=== PATIENT | female | born 1955 | race Caucasian/White ===

== ENCOUNTER → 2017-08-25 | Outpatient (REF) | payer OTHER ==
[2017-08-25 18:14] LABS: ANION GAP 4 MEQ/L (8-16); BLOOD UREA NITROGEN 22 MG/DL (7-18); CALCIUM LEVEL 9.3 MG/DL (8.8-10.2); CARBON DIOXIDE LEVEL 34 MEQ/L (21-32); CHLORIDE LEVEL 101 MEQ/L (98-107); CREATININE FOR GFR 0.95 MG/DL (0.55-1.02); GLOMERULAR FILTRATION RATE > 60.0 (>45); GLUCOSE, FASTING 105 MG/DL (80-110); POTASSIUM SERUM 4.1 MEQ/L (3.5-5.1); SODIUM LEVEL 139 MEQ/L (136-145)
== END ==
LOC: M SFHCLERA 13:43
PROVIDERS: ATTEND Family Medicine
DX: Z13.1 Encounter for screening for diabetes mellitus (principal); I10 Essential (primary) hypertension

== ENCOUNTER → 2019-02-11 | Outpatient (REF) | payer OTHER ==
[2019-02-11 18:33] LABS: BLOOD UREA NITROGEN 18 MG/DL (7-18); CALCIUM LEVEL 9.5 MG/DL (8.8-10.2); CARBON DIOXIDE LEVEL 34 MEQ/L (21-32); CHLORIDE LEVEL 102 MEQ/L (98-107); CHOLESTEROL LEVEL 148 MG/DL (<200); CREATININE FOR GFR 0.94 MG/DL (0.55-1.30); GLOMERULAR FILTRATION RATE > 60.0 (>45); GLUCOSE, FASTING 91 MG/DL (70-100); HDL CHOLESTEROL 50 MG/DL (>40); LDL CHOLESTEROL 80 MG/DL (<100); NON-HDL-C 98 MG/DL; POTASSIUM SERUM 4.5 MEQ/L (3.5-5.1); SODIUM LEVEL 141 MEQ/L (136-145); TRIGLYCERIDES LEVEL 89 MG/DL (<150)
== END ==
LOC: M SFHCLERA 11:13
PROVIDERS: ATTEND Family Medicine
DX: I10 Essential (primary) hypertension (principal); E78.5 Hyperlipidemia, unspecified; R73.03 Prediabetes

== ENCOUNTER → 2019-03-08 | Outpatient (CLI) | payer OTHER ==
--- NOTE | 2019-03-08 11:35 | REP ---
PA and lateral chest: There are no comparisons. The lung alvarez are clear. The cardiac size is normal. The chandni, mediastinum, and skeletal structures are unremarkable. Impression: Negative PA and lateral chest. Electronically Signed by Zion Adames MD 03/08/2019 11:27 A
== END ==
LOC: M LRY 11:05
PROVIDERS: ATTEND Physician Assistant
DX: R06.2 Wheezing (principal)

== ENCOUNTER 2021-12-03 18:42 | Inpatient (IN) | payer MEDICARE ==
[~2021-12-03] VITALS: Ht 154.9 cm; Wt 42.4 kg
[2021-12-03] MEDS ORDERED: HOME MED LIST COMPLETE! XX SCH (21:00)
[2021-12-03] MEDS ORDERED: D31000TA2 PO (21:00)
[2021-12-03] MEDS ORDERED: LISI20TA33 PO (21:00)
[2021-12-03] MEDS ORDERED: ASPI1TAB8 PO (21:00)
[2021-12-03] MEDS ORDERED: CHLO125TA PO (21:00)
[2021-12-03] MEDS ORDERED: ATOR80TA59 PO (21:00)
[2021-12-03 21:31] LABS: RSV AMPLIFICATION NEGATIVE (NEGATIVE)
[2021-12-03 21:48] VITALS: BP 105/53
[2021-12-03 22:03] VITALS: BP 101/57
[2021-12-03] MEDS ORDERED: MAALOX 30 ML SUSP *UDC PO PRN (22:05)
[2021-12-03] MEDS ORDERED: ACETAMINOPHEN TAB 650MG DOSE (2X325MG) PO PRN (22:05)
[2021-12-03] MEDS ORDERED: MOM 30ML SUSPENSION UDC PO PRN (22:05)
[2021-12-03] MEDS: NS 1,000 ML IV SCH (22:10)
[2021-12-03] MEDS ORDERED: NS 500 ML IV ONE (22:10)
[2021-12-03 22:54] VITALS: BP 105/52
[2021-12-03 23:59] VITALS: BP 114/59
[2021-12-04] VITALS (8 sets, daily range): BP systolic 91–92; BP diastolic 51–52
[2021-12-04 01:31] LABS: BASO % 0.2 % (0.0-1.0); EOS # 0.2 10^3/uL (0.0-0.5); EOS % 1.2 % (0.0-3.0); HEMATOCRIT 27.2 % (36.0-47.0); LYMPH # 0.9 10^3/uL (1.5-5.0); LYMPH % 4.6 % (24.0-44.0); MEAN CORPUSCULAR HEMOGLOBIN 26.2 pg (27.0-33.0); MEAN CORPUSCULAR HGB CONC 31.6 g/dl (32.0-36.5); MEAN CORPUSCULAR VOLUME 82.9 fl (80.0-96.0); MONO % 5.2 % (2.0-8.0); NEUTROPHILS # 16.6 10^3/uL (1.5-8.5); NEUTROPHILS % 88.3 % (36.0-66.0); RED BLOOD COUNT 3.28 10^6/uL (4.00-5.40); WHITE BLOOD COUNT 18.8 10^3/uL (4.0-10.0)
[2021-12-04 01:40] LABS: HEMOGLOBIN 8.6 g/dl (12.0-15.5); PLATELET COUNT, AUTOMATED 458 10^3/uL (150-450)
[2021-12-04 01:42] LABS: ALBUMIN 2.6 GM/DL (3.2-5.2); BILIRUBIN,TOTAL 1.3 MG/DL (0.2-1.0); CALCIUM LEVEL 8.8 MG/DL (8.8-10.2); CREATININE FOR GFR 1.65 MG/DL (0.55-1.30); GLOMERULAR FILTRATION RATE 32.9 (>45); MAGNESIUM LEVEL 2.4 MG/DL (1.8-2.4); POTASSIUM SERUM 4.5 MEQ/L (3.5-5.1); TOTAL PROTEIN 5.9 GM/DL (6.4-8.2)
[2021-12-04] MEDS: PIPERACILLIN/TAZOBACTAM SOD 4.5 GM in D5W MINI-BAG PLUS 50 ML IV SCH ×3 (02:05→15:31)
[2021-12-04] MEDS: NS 1,000 ML IV SCH ×3 (06:44→21:54)
[2021-12-04] MEDS: ATORVASTATIN 20 MG TAB PO SCH (09:18)
[2021-12-04 11:39] LABS: CALCIUM LEVEL 8.9 MG/DL (8.8-10.2); CREATININE FOR GFR 1.54 MG/DL (0.55-1.30); GLOMERULAR FILTRATION RATE 35.7 (>45); POTASSIUM SERUM 4.6 MEQ/L (3.5-5.1)
[2021-12-04 11:40] LABS: BASO % 0.2 % (0.0-1.0); EOS # 0.2 10^3/uL (0.0-0.5); EOS % 1.1 % (0.0-3.0); HEMATOCRIT 31.4 % (36.0-47.0); HEMOGLOBIN 10.1 g/dl (12.0-15.5); LYMPH # 0.8 10^3/uL (1.5-5.0); LYMPH % 4.3 % (24.0-44.0); MAGNESIUM LEVEL 2.3 MG/DL (1.8-2.4); MEAN CORPUSCULAR HEMOGLOBIN 25.6 pg (27.0-33.0); MEAN CORPUSCULAR HGB CONC 32.2 g/dl (32.0-36.5); MEAN CORPUSCULAR VOLUME 79.5 fl (80.0-96.0); MONO # 0.9 10^3/uL (0.0-0.8); MONO % 4.8 % (2.0-8.0); NEUTROPHILS % 88.8 % (36.0-66.0); PHOSPHORUS LEVEL 3.6 MG/DL (2.5-4.9); PLATELET COUNT, AUTOMATED 434 10^3/uL (150-450); RED BLOOD COUNT 3.95 10^6/uL (4.00-5.40)
[2021-12-04 12:44] LABS: APPEARANCE, URINE CLOUDY (CLEAR); BACTERIA, URINE AUTO 1+ (NEGATIVE); BILIRUBIN, URINE AUTO NEGATIVE (NEGATIVE); BLOOD, URINE BLOOD 2+ (NEGATIVE); COLOR, URINE YELLOW (YELLOW); GLUCOSE, URINE (UA) AUTO NEGATIVE (NEGATIVE); KETONE, URINE AUTO NEGATIVE (NEGATIVE); LEUKOCYTE ESTERASE, URINE AUTO NEGATIVE (NEGATIVE); MUCUS, URINE SMALL (NEGATIVE); NITRITE, URINE AUTO NEGATIVE (NEGATIVE); PROTEIN, URINE AUTO 1+ mg/dL (NEGATIVE); RBC, URINE AUTO 1 /HPF (0-3); SPECIFIC GRAVITY URINE AUTO 1.014 (1.002-1.035); SQUAMOUS EPITHELIAL CELL UR AU 0 /HPF (0-6); UROBILINOGEN, URINE AUTO 0.2 mg/dL (0.0-2.0); WBC, URINE AUTO 5 /HPF (0-3)
[2021-12-04 20:57] LABS: PERCENT SATURATION 10.7 % (13.2-45.0)
[2021-12-04 22:31] LABS: FOLATE 8.6 NG/ML (>5.4)
[2021-12-05] MEDS: NS 1,000 ML IV SCH ×2 (01:40→14:10)
[2021-12-05 06:00] VITALS: BP 92/52
[2021-12-05 06:54] LABS: BASO # 0.1 10^3/uL (0.0-0.2); BASO % 0.3 % (0.0-1.0); EOS # 0.3 10^3/uL (0.0-0.5); EOS % 1.8 % (0.0-3.0); HEMATOCRIT 28.8 % (36.0-47.0); HEMOGLOBIN 9.1 g/dl (12.0-15.5); LYMPH # 0.8 10^3/uL (1.5-5.0); LYMPH % 4.7 % (24.0-44.0); MEAN CORPUSCULAR HEMOGLOBIN 25.5 pg (27.0-33.0); MEAN CORPUSCULAR HGB CONC 31.6 g/dl (32.0-36.5); MEAN CORPUSCULAR VOLUME 80.7 fl (80.0-96.0); MONO % 5.7 % (2.0-8.0); NEUTROPHILS # 15.1 10^3/uL (1.5-8.5); NEUTROPHILS % 86.8 % (36.0-66.0); PLATELET COUNT, AUTOMATED 389 10^3/uL (150-450); RED BLOOD COUNT 3.57 10^6/uL (4.00-5.40); WHITE BLOOD COUNT 17.4 10^3/uL (4.0-10.0)
[2021-12-05 07:22] LABS: ALBUMIN 1.9 GM/DL (3.2-5.2); ALT/SGPT 42 U/L (12-78); BILIRUBIN,TOTAL 1.3 MG/DL (0.2-1.0); BLOOD UREA NITROGEN 40 MG/DL (7-18); CALCIUM LEVEL 8.1 MG/DL (8.8-10.2); CARBON DIOXIDE LEVEL 22 MEQ/L (21-32); CHLORIDE LEVEL 112 MEQ/L (98-107); CREATININE FOR GFR 1.41 MG/DL (0.55-1.30); GLOMERULAR FILTRATION RATE 39.5 (>45); GLUCOSE, FASTING 61 MG/DL (70-100); MAGNESIUM LEVEL 2.3 MG/DL (1.8-2.4); PHOSPHORUS LEVEL 3.2 MG/DL (2.5-4.9); POTASSIUM SERUM 4.1 MEQ/L (3.5-5.1); SODIUM LEVEL 143 MEQ/L (136-145); TOTAL PROTEIN 4.6 GM/DL (6.4-8.2)
[2021-12-05] MEDS: ATORVASTATIN 20 MG TAB PO SCH (08:46)
[2021-12-05] MEDS: GASTROGRAFIN SOLUTION 30ML PO SCH ×2 (08:46→09:36)
[2021-12-05 08:59] LABS: HEPATITIS B SURFACE ANTIGEN NEGATIVE (NEGATIVE)
[2021-12-05 09:26] LABS: HEPATITIS C VIRUS ABY INDEX < 0.0 INDEX (<0.8)
[2021-12-05 09:27] LABS: HEPATITIS B CORE ANTIBODY IGM NEGATIVE (NEGATIVE)
[2021-12-05 14:00] VITALS: BP 113/62
[2021-12-05] MEDS ORDERED: LIDOCAINE 1% MDV 20ML VIAL As Ordered ONE (14:49)
[2021-12-05 15:25] VITALS: BP 111/63
[2021-12-05 15:50] VITALS: BP 96/56
[2021-12-05 17:05] VITALS: BP 99/56
[2021-12-05] MEDS: D5W/0.45% SODIUM CHLORIDE 1,000 ML IV SCH (18:12)
[2021-12-05 21:20] VITALS: BP 101/54
[2021-12-05] MEDS ORDERED: MOM 30ML SUSPENSION UDC PO ONE (22:00)
[2021-12-06] MEDS: D5W/0.45% SODIUM CHLORIDE 1,000 ML IV SCH (02:10)
[2021-12-06 06:00] VITALS: BP 123/67
[2021-12-06 06:11] LABS: BASO # 0.1 10^3/uL (0.0-0.2); BASO % 0.3 % (0.0-1.0); EOS # 0.3 10^3/uL (0.0-0.5); EOS % 1.4 % (0.0-3.0); HEMATOCRIT 29.9 % (36.0-47.0); HEMOGLOBIN 9.2 g/dl (12.0-15.5); LYMPH # 0.7 10^3/uL (1.5-5.0); MEAN CORPUSCULAR HEMOGLOBIN 25.3 pg (27.0-33.0); MEAN CORPUSCULAR HGB CONC 30.8 g/dl (32.0-36.5); MEAN CORPUSCULAR VOLUME 82.1 fl (80.0-96.0); MONO # 0.9 10^3/uL (0.0-0.8); MONO % 5.1 % (2.0-8.0); NEUTROPHILS # 16.2 10^3/uL (1.5-8.5); NEUTROPHILS % 88.5 % (36.0-66.0); PLATELET COUNT, AUTOMATED 399 10^3/uL (150-450); RED BLOOD COUNT 3.64 10^6/uL (4.00-5.40); WHITE BLOOD COUNT 18.3 10^3/uL (4.0-10.0)
[2021-12-06 06:37] LABS: ALBUMIN 1.8 GM/DL (3.2-5.2); BILIRUBIN,TOTAL 0.7 MG/DL (0.2-1.0); CALCIUM LEVEL 7.8 MG/DL (8.8-10.2); CREATININE FOR GFR 1.54 MG/DL (0.55-1.30); GLOMERULAR FILTRATION RATE 35.7 (>45); MAGNESIUM LEVEL 2.1 MG/DL (1.8-2.4); PHOSPHORUS LEVEL 2.6 MG/DL (2.5-4.9); POTASSIUM SERUM 3.6 MEQ/L (3.5-5.1); TOTAL PROTEIN 4.6 GM/DL (6.4-8.2)
[2021-12-06] MEDS ORDERED: MOM 30ML SUSPENSION UDC PO SCH (07:00)
[2021-12-06] MEDS ORDERED: MOM 30ML SUSPENSION UDC PO ONE (08:10)
[2021-12-06] MEDS: ATORVASTATIN 20 MG TAB PO SCH (08:35)
[2021-12-06] MEDS: KCL 10MEQ/100ML SWI (KRUN) 10 MEQ in IV 1 EA IV SCH ×4 (08:35→13:56)
[2021-12-06] MEDS ORDERED: FLEET ENEMA PR ONE (12:00)
[2021-12-06] MEDS ORDERED: propofoL 200 MG/20 ML VIAL As Ordered ONE (13:01)
[2021-12-06] MEDS ORDERED: PHENYLephrine 500MCG 5ML (100MCG/ML) SYRINGE As Ordered ONE (13:07)
[2021-12-06 14:00] VITALS: BP 120/69
[2021-12-06] MEDS ORDERED: IRON SUCROSE 200 MG in NS 100 ML IV ONE (17:00)
[2021-12-06] MEDS ORDERED: LevoFLOXacin 750 MG TABLET PO SCH (18:00)
[2021-12-06 22:00] VITALS: BP 103/62
[2021-12-07 02:00] VITALS: BP 114/74
[2021-12-07 05:20] VITALS: BP 111/68
[2021-12-07 06:27] LABS: BASO # 0.1 10^3/uL (0.0-0.2); BASO % 0.3 % (0.0-1.0); EOS # 0.2 10^3/uL (0.0-0.5); EOS % 1.4 % (0.0-3.0); HEMATOCRIT 29.9 % (36.0-47.0); HEMOGLOBIN 9.3 g/dl (12.0-15.5); LYMPH # 0.7 10^3/uL (1.5-5.0); LYMPH % 4.2 % (24.0-44.0); MEAN CORPUSCULAR HEMOGLOBIN 25.7 pg (27.0-33.0); MEAN CORPUSCULAR HGB CONC 31.1 g/dl (32.0-36.5); MEAN CORPUSCULAR VOLUME 82.6 fl (80.0-96.0); MONO % 6.1 % (2.0-8.0); NEUTROPHILS # 14.8 10^3/uL (1.5-8.5); NEUTROPHILS % 87.2 % (36.0-66.0); PLATELET COUNT, AUTOMATED 400 10^3/uL (150-450); RED BLOOD COUNT 3.62 10^6/uL (4.00-5.40)
[2021-12-07 06:50] LABS: CALCIUM LEVEL 8.1 MG/DL (8.8-10.2); CREATININE FOR GFR 1.74 MG/DL (0.55-1.30); MAGNESIUM LEVEL 2.3 MG/DL (1.8-2.4); PHOSPHORUS LEVEL 2.4 MG/DL (2.5-4.9); POTASSIUM SERUM 4.6 MEQ/L (3.5-5.1)
[2021-12-07] MEDS ORDERED: K-PHOS ORIGINAL (POT.ACID PHOSPHATE) 500MG TAB PO ONE (08:00)
[2021-12-07] MEDS: ATORVASTATIN 20 MG TAB PO SCH (08:30)
[2021-12-07] MEDS ORDERED: SPIRONOLACTONE 12.5MG PER 1/2 TABLET PO SCH (09:00)
[2021-12-07 10:00] VITALS: BP 113/67
[2021-12-07] MEDS ORDERED: ALDA25TA2 PO (11:28)
[2021-12-07] MEDS ORDERED: LEVO750T13 PO (11:28)
[2021-12-07 14:00] VITALS: BP 126/75
== END 2021-12-07 15:11 | disposition home or self-care (01) | DRG 375 ==
LOC: M ED 18:42 → M ED INP 22:04 → ENRESERV 23:09 → UNDODISIN 12-04 00:22 → M MSPAV 12-04 00:36
PROVIDERS: ADMIT Family Medicine; ATTEND Internal Medicine
PROC: 30233N1 Transfusion of Nonautologous Red Blood Cells into Peripheral Vein, Percutaneous Approach (ICD-10-PCS; 2021-12-03)
PROC: 0FB13ZX Excision of Right Lobe Liver, Percutaneous Approach, Diagnostic (ICD-10-PCS; 2021-12-06)
PROC: 0DBK8ZX Excision of Ascending Colon, Via Natural or Artificial Opening Endoscopic, Diagnostic (ICD-10-PCS; principal; 2021-12-06 13:25)
DX: C18.2 Malignant neoplasm of ascending colon (principal); N17.9 Acute kidney failure, unspecified; C78.7 Secondary malignant neoplasm of liver and intrahepatic bile duct; Z68.1 Body mass index [BMI] 19.9 or less, adult; D50.0 Iron deficiency anemia secondary to blood loss (chronic); R63.4 Abnormal weight loss; I10 Essential (primary) hypertension; R91.8 Other nonspecific abnormal finding of lung field; E78.5 Hyperlipidemia, unspecified; Z79.899 Other long term (current) drug therapy; Z79.82 Long term (current) use of aspirin; E87.6 Hypokalemia

== ENCOUNTER → 2021-12-03 | Outpatient (CLI) | payer MEDICARE ==
[~2021-12-03] MED LIST: ASPI1TAB8 PO; ATOR80TA59 PO; CHLO125TA PO; D31000TA2 PO; LISI20TA33 PO
[2021-12-03 15:34] LABS: BASO # 0.1 10^3/uL (0.0-0.2); BASO % 0.2 % (0.0-1.0); EOS # 0.1 10^3/uL (0.0-0.5); EOS % 0.6 % (0.0-3.0); LYMPH # 0.8 10^3/uL (1.5-5.0); LYMPH % 3.6 % (24.0-44.0); MEAN CORPUSCULAR HEMOGLOBIN 24.5 pg (27.0-33.0); MEAN CORPUSCULAR HGB CONC 30.1 g/dl (32.0-36.5); MEAN CORPUSCULAR VOLUME 81.5 fl (80.0-96.0); MONO # 1.4 10^3/uL (0.0-0.8); MONO % 6.6 % (2.0-8.0); NEUTROPHILS # 18.4 10^3/uL (1.5-8.5); NEUTROPHILS % 88.1 % (36.0-66.0); PLATELET COUNT, AUTOMATED 569 10^3/uL (150-450); RED BLOOD COUNT 2.65 10^6/uL (4.00-5.40); WHITE BLOOD COUNT 20.8 10^3/uL (4.0-10.0)
[2021-12-03 15:36] LABS: AMORPHOUS SEDIMENT SMALL (NEGATIVE); APPEARANCE, URINE CLOUDY (CLEAR); BACTERIA, URINE AUTO NEGATIVE (NEGATIVE); BILIRUBIN, URINE AUTO NEGATIVE (NEGATIVE); BLOOD, URINE BLOOD 1+ (NEGATIVE); COLOR, URINE YELLOW (YELLOW); GLUCOSE, URINE (UA) AUTO NEGATIVE (NEGATIVE); GRANULAR CAST, URINE AUTO 3 /LPF; KETONE, URINE AUTO NEGATIVE (NEGATIVE); LEUKOCYTE ESTERASE, URINE AUTO 2+ (NEGATIVE); MUCUS, URINE SMALL (NEGATIVE); NITRITE, URINE AUTO NEGATIVE (NEGATIVE); PROTEIN, URINE AUTO 1+ mg/dL (NEGATIVE); RBC, URINE AUTO 1 /HPF (0-3); SPECIFIC GRAVITY URINE AUTO 1.015 (1.002-1.035); SQUAMOUS EPITHELIAL CELL UR AU 2 /HPF (0-6); WBC, URINE AUTO 6 /HPF (0-3)
[2021-12-03 15:46] LABS: HEMOGLOBIN 6.5 g/dl (12.0-15.5)
[2021-12-03 15:47] LABS: HEMATOCRIT 21.6 % (36.0-47.0)
[2021-12-03 15:59] LABS: HEMOGLOBIN A1c 5.6 %
[2021-12-03 16:07] LABS: ALBUMIN 2.6 GM/DL (3.2-5.2); BILIRUBIN,TOTAL 0.4 MG/DL (0.2-1.0); C REACTIVE PROTEIN QUANTITATIV 13.7 MG/DL (0.00-0.30); CALCIUM LEVEL 9.3 MG/DL (8.8-10.2); CREATININE FOR GFR 1.8 MG/DL (0.55-1.30); GLOMERULAR FILTRATION RATE 29.8 (>45); POTASSIUM SERUM 4.6 MEQ/L (3.5-5.1); THYROID STIMULATING HORMONE 1.5 uIU/ML (0.358-3.740)
[2021-12-03 16:13] LABS: ERYTHROCYTE SEDIMENTATION RATE 108 mm/hr (0-30)
== END ==
LOC: M RAD 13:30
PROVIDERS: ATTEND Family Medicine
DX: R91.8 Other nonspecific abnormal finding of lung field (principal); I73.9 Peripheral vascular disease, unspecified; Z79.899 Other long term (current) drug therapy

== ENCOUNTER 2021-12-11 20:37 | Observation (INO) | payer MEDICARE ==
[~2021-12-11] VITALS: Ht 154.9 cm; Wt 45.5 kg
[~2021-12-11 20:37] MED LIST changes: +ALDA25TA2 PO; -D31000TA2 PO; +LEVO750T13 PO; +VITA100093 PO
[2021-12-11 22:23] LABS: BASO # 0.1 10^3/uL (0.0-0.2); BASO % 0.2 % (0.0-1.0); EOS # 0.2 10^3/uL (0.0-0.5); EOS % 0.9 % (0.0-3.0); HEMATOCRIT 31.7 % (36.0-47.0); HEMOGLOBIN 9.9 g/dl (12.0-15.5); LYMPH # 0.8 10^3/uL (1.5-5.0); LYMPH % 3.9 % (24.0-44.0); MEAN CORPUSCULAR HEMOGLOBIN 26.2 pg (27.0-33.0); MEAN CORPUSCULAR HGB CONC 31.2 g/dl (32.0-36.5); MEAN CORPUSCULAR VOLUME 83.9 fl (80.0-96.0); MONO # 0.9 10^3/uL (0.0-0.8); MONO % 4.2 % (2.0-8.0); NEUTROPHILS # 18.5 10^3/uL (1.5-8.5); NEUTROPHILS % 90.1 % (36.0-66.0); PLATELET COUNT, AUTOMATED 385 10^3/uL (150-450); RED BLOOD COUNT 3.78 10^6/uL (4.00-5.40); WHITE BLOOD COUNT 20.5 10^3/uL (4.0-10.0)
[2021-12-11 22:59] LABS: CALCIUM LEVEL 9.3 MG/DL (8.8-10.2); CREATININE FOR GFR 1.63 MG/DL (0.55-1.30); GLOMERULAR FILTRATION RATE 33.4 (>45); POTASSIUM SERUM 4.7 MEQ/L (3.5-5.1)
[2021-12-12] MEDS ORDERED: ACETAMINOPHEN TAB 650MG DOSE (2X325MG) PO PRN (05:15)
[2021-12-12] MEDS ORDERED: LEVO750T13 PO (06:50)
[2021-12-12] MEDS ORDERED: SPIR-10 PO (06:50)
[2021-12-12] MEDS ORDERED: HOME MED LIST COMPLETE! XX SCH (06:50)
[2021-12-12] MEDS: HEPARIN SOD (PORCINE) 5000UNITS/ML 1ML VIAL/SYRINGE SC SCH ×2 (07:51→14:00)
[2021-12-12 09:03] VITALS: BP 109/64
[2021-12-12 09:09] LABS: BASO # 0.1 10^3/uL (0.0-0.2); BASO % 0.2 % (0.0-1.0); EOS # 0.1 10^3/uL (0.0-0.5); EOS % 0.4 % (0.0-3.0); HEMATOCRIT 32.3 % (36.0-47.0); HEMOGLOBIN 9.8 g/dl (12.0-15.5); LYMPH # 0.7 10^3/uL (1.5-5.0); LYMPH % 3.4 % (24.0-44.0); MEAN CORPUSCULAR HEMOGLOBIN 25.7 pg (27.0-33.0); MEAN CORPUSCULAR HGB CONC 30.3 g/dl (32.0-36.5); MEAN CORPUSCULAR VOLUME 84.6 fl (80.0-96.0); MONO % 4.6 % (2.0-8.0); NEUTROPHILS # 19.8 10^3/uL (1.5-8.5); NEUTROPHILS % 90.2 % (36.0-66.0); PLATELET COUNT, AUTOMATED 381 10^3/uL (150-450); RED BLOOD COUNT 3.82 10^6/uL (4.00-5.40)
[2021-12-12 09:44] LABS: ALBUMIN 2.4 GM/DL (3.2-5.2); BILIRUBIN,TOTAL 0.9 MG/DL (0.2-1.0); CALCIUM LEVEL 9.6 MG/DL (8.8-10.2); CREATININE FOR GFR 1.76 MG/DL (0.55-1.30); GLOMERULAR FILTRATION RATE 30.6 (>45); POTASSIUM SERUM 4.2 MEQ/L (3.5-5.1); TOTAL PROTEIN 6.4 GM/DL (6.4-8.2)
[2021-12-12] MEDS ORDERED: FUROSEMIDE 20MG/2ML VIAL (J1940) IV ONE (12:30)
[2021-12-12] MEDS ORDERED: FURO20TA2 PO (12:34)
[2021-12-12 18:41] LABS: C REACTIVE PROTEIN QUANTITATIV 12.3 MG/DL (0.00-0.30)
[2021-12-18] MEDS ORDERED: VITA100093 PO (04:14)
== END 2021-12-12 15:46 | disposition home or self-care (01) ==
LOC: M ED 20:37 → M ED INP 20:38
PROVIDERS: ADMIT Internal Medicine; ATTEND Internal Medicine
DX: R60.0 Localized edema (principal); N17.9 Acute kidney failure, unspecified; I10 Essential (primary) hypertension; E78.00 Pure hypercholesterolemia, unspecified; D64.9 Anemia, unspecified; C18.9 Malignant neoplasm of colon, unspecified; Z79.899 Other long term (current) drug therapy
CPT/HCPCS: 36415; 71045; 74176; 80048; 80053; 80503; 83735; 83880; 84145; 85025; 85652; 86140; 87040; 87798; 93005; 93306; 93970; 96374; 99284; G0378; J1644; J1940

== ENCOUNTER 2021-12-17 13:10 | Inpatient (IN) | payer MEDICARE ==
[~2021-12-17] VITALS: Ht 154.9 cm; Wt 48.5 kg
[~2021-12-17 13:10] MED LIST changes: +D31000TA2 PO; +FURO20TA2 PO; +SPIR-10 PO; -VITA100093 PO
[2021-12-17 18:56] LABS: BASO # 0.1 10^3/uL (0.0-0.2); BASO % 0.2 % (0.0-1.0); HEMATOCRIT 36.2 % (36.0-47.0); HEMOGLOBIN 11.1 g/dl (12.0-15.5); LYMPH # 0.8 10^3/uL (1.5-5.0); LYMPH % 2.6 % (24.0-44.0); MEAN CORPUSCULAR HEMOGLOBIN 25.1 pg (27.0-33.0); MEAN CORPUSCULAR HGB CONC 30.7 g/dl (32.0-36.5); MEAN CORPUSCULAR VOLUME 81.9 fl (80.0-96.0); MONO % 3.5 % (2.0-8.0); NEUTROPHILS # 26.8 10^3/uL (1.5-8.5); NEUTROPHILS % 92.7 % (36.0-66.0); PLATELET COUNT, AUTOMATED 362 10^3/uL (150-450); RED BLOOD COUNT 4.42 10^6/uL (4.00-5.40)
[2021-12-17 19:34] LABS: ERYTHROCYTE SEDIMENTATION RATE 69 mm/hr (0-30)
[2021-12-17 21:14] LABS: ALBUMIN 2.3 GM/DL (3.2-5.2); BILIRUBIN,DIRECT 1.1 MG/DL (0.0-0.2); BILIRUBIN,TOTAL 1.5 MG/DL (0.2-1.0); C REACTIVE PROTEIN QUANTITATIV 20.1 MG/DL (0.00-0.30); CALCIUM LEVEL 8.7 MG/DL (8.8-10.2); CREATININE FOR GFR 3.29 MG/DL (0.55-1.30); FREE T4 1.34 NG/DL (0.76-1.46); GLOMERULAR FILTRATION RATE 14.9 (>45); POTASSIUM SERUM 5.2 MEQ/L (3.5-5.1); THYROID STIMULATING HORMONE 5.37 uIU/ML (0.358-3.740); TOTAL PROTEIN 6.2 GM/DL (6.4-8.2)
[2021-12-17] MEDS ORDERED: MORPHINE 2 MG/ML 1ML VIAL (J2270) IV ONE (21:45)
[2021-12-18] MEDS ORDERED: DEXTROSE 50% 50 ML SYRINGE As Ordered ONE (01:35)
[2021-12-18] MEDS ORDERED: DEXTROSE 50% 50 ML SYRINGE IV STA (01:59)
[2021-12-18] MEDS ORDERED: NS 1,000 ML IV SCH ×2 (04:00)
[2021-12-18] MEDS ORDERED: SPIR-10 PO (04:14)
[2021-12-18] MEDS ORDERED: FURO20TA2 PO (04:14)
[2021-12-18] MEDS ORDERED: D31000TA2 PO (04:14)
[2021-12-18] MEDS ORDERED: ATOR80TA59 PO (04:14)
[2021-12-18 04:15] VITALS: BP 115/67
[2021-12-18] MEDS ORDERED: HOME MED LIST COMPLETE! XX SCH (04:15)
[2021-12-18] MEDS: HEPARIN SOD (PORCINE) 5000UNITS/ML 1ML VIAL/SYRINGE SC SCH ×3 (05:17→22:25)
[2021-12-18 06:32] LABS: CALCIUM LEVEL 8.2 MG/DL (8.8-10.2); CREATININE FOR GFR 3.5 MG/DL (0.55-1.30); GLOMERULAR FILTRATION RATE 13.8 (>45); POTASSIUM SERUM 4.7 MEQ/L (3.5-5.1)
[2021-12-18] MEDS ORDERED: HEPARIN SOD (PORCINE) 5000UNITS/ML 1ML VIAL/SYRINGE SC SCH (09:00)
[2021-12-18] MEDS ORDERED: ATORVASTATIN 20 MG TAB PO SCH (09:00)
[2021-12-18] MEDS: VITAMIN D 1,000 INTERNATIONAL UNITS TABLET PO SCH (09:10)
[2021-12-18] MEDS ORDERED: ONDANSETRON 4MG/2ML VIAL IV PRN (09:50)
[2021-12-18] MEDS ORDERED: FUROSEMIDE 40MG/4ML VIAL (J1940) IV SCH (10:00)
[2021-12-18 14:00] VITALS: BP 112/67
[2021-12-18] MEDS: D5W/0.45% SODIUM CHLORIDE 1,000 ML IV SCH (14:18)
[2021-12-18 16:40] VITALS: BP 111/66
[2021-12-18 19:35] LABS: APPEARANCE, URINE CLOUDY (CLEAR); BACTERIA, URINE AUTO 1+ (NEGATIVE); BILIRUBIN, URINE AUTO NEGATIVE (NEGATIVE); BLOOD, URINE BLOOD 3+ (NEGATIVE); COLOR, URINE AMBER (YELLOW); GLUCOSE, URINE (UA) AUTO 1+ mg/dL (NEGATIVE); KETONE, URINE AUTO NEGATIVE (NEGATIVE); LEUKOCYTE ESTERASE, URINE AUTO TRACE (NEGATIVE); NITRITE, URINE AUTO NEGATIVE (NEGATIVE); PROTEIN, URINE AUTO 2+ mg/dL (NEGATIVE); RBC, URINE AUTO 2 /HPF (0-3); SPECIFIC GRAVITY URINE AUTO 1.016 (1.002-1.035); SQUAMOUS EPITHELIAL CELL UR AU 0 /HPF (0-6); WBC, URINE AUTO 12 /HPF (0-3)
[2021-12-18 22:00] VITALS: BP 109/65
[2021-12-18] MEDS ORDERED: ANALGESIC BALM CRM 3OZ TOP PRN (22:05)
[2021-12-18] MEDS ORDERED: MORPHINE 2 MG/ML 1ML VIAL (J2270) IV PRN (22:05)
[2021-12-18] MEDS: oxyCODONE 5MG TAB PO PRN (23:08)
[2021-12-19] MEDS: D5W/0.45% SODIUM CHLORIDE 1,000 ML IV SCH ×2 (03:49→17:54)
[2021-12-19] MEDS: HEPARIN SOD (PORCINE) 5000UNITS/ML 1ML VIAL/SYRINGE SC SCH ×3 (05:41→21:12)
[2021-12-19 06:00] VITALS: BP 104/63
[2021-12-19 06:10] LABS: HEMATOCRIT 26.3 % (36.0-47.0); HEMOGLOBIN 8.5 g/dl (12.0-15.5); MEAN CORPUSCULAR HEMOGLOBIN 26.3 pg (27.0-33.0); MEAN CORPUSCULAR HGB CONC 32.3 g/dl (32.0-36.5); MEAN CORPUSCULAR VOLUME 81.4 fl (80.0-96.0); PLATELET COUNT, AUTOMATED 237 10^3/uL (150-450); RED BLOOD COUNT 3.23 10^6/uL (4.00-5.40); WHITE BLOOD COUNT 26.4 10^3/uL (4.0-10.0)
[2021-12-19 06:35] LABS: CALCIUM LEVEL 7.4 MG/DL (8.8-10.2); CREATININE FOR GFR 4.03 MG/DL (0.55-1.30); GLOMERULAR FILTRATION RATE 11.8 (>45); POTASSIUM SERUM 4.7 MEQ/L (3.5-5.1)
[2021-12-19 06:36] LABS: ALBUMIN 1.6 GM/DL (3.2-5.2); BILIRUBIN,TOTAL 0.9 MG/DL (0.2-1.0); TOTAL PROTEIN 5.2 GM/DL (6.4-8.2)
[2021-12-19] MEDS: VITAMIN D 1,000 INTERNATIONAL UNITS TABLET PO SCH (08:12)
[2021-12-19] MEDS: SODIUM BICARBONATE 325 MG TAB PO SCH ×3 (13:03→21:11)
[2021-12-19 14:00] VITALS: BP 108/66
[2021-12-19] MEDS ORDERED: hydrOXYzine 25 MG TAB PO PRN (19:45)
[2021-12-19] MEDS: diphenhydrAMINE CREAM 30GM TOP PRN (21:12)
[2021-12-19 22:00] VITALS: BP 106/65
[2021-12-19] MEDS: oxyCODONE 5MG TAB PO PRN (23:59)
[2021-12-20 05:00] VITALS: BP 106/66
[2021-12-20] MEDS: D5W/0.45% SODIUM CHLORIDE 1,000 ML IV SCH (05:48)
[2021-12-20] MEDS: HEPARIN SOD (PORCINE) 5000UNITS/ML 1ML VIAL/SYRINGE SC SCH ×2 (05:48→14:00)
[2021-12-20 06:38] LABS: HEMATOCRIT 28.7 % (36.0-47.0); MEAN CORPUSCULAR HEMOGLOBIN 25.6 pg (27.0-33.0); MEAN CORPUSCULAR HGB CONC 31.4 g/dl (32.0-36.5); MEAN CORPUSCULAR VOLUME 81.5 fl (80.0-96.0); PLATELET COUNT, AUTOMATED 256 10^3/uL (150-450); RED BLOOD COUNT 3.52 10^6/uL (4.00-5.40); WHITE BLOOD COUNT 29.3 10^3/uL (4.0-10.0)
[2021-12-20 06:58] LABS: CREATININE FOR GFR 4.4 MG/DL (0.55-1.30); GLOMERULAR FILTRATION RATE 10.6 (>45); POTASSIUM SERUM 5.1 MEQ/L (3.5-5.1)
[2021-12-20 07:03] LABS: ALBUMIN 1.6 GM/DL (3.2-5.2); BILIRUBIN,TOTAL 1.2 MG/DL (0.2-1.0); CALCIUM LEVEL 7.3 MG/DL (8.8-10.2); CREATININE FOR GFR 4.43 MG/DL (0.55-1.30); GLOMERULAR FILTRATION RATE 10.5 (>45); POTASSIUM SERUM 4.9 MEQ/L (3.5-5.1); TOTAL PROTEIN 5.3 GM/DL (6.4-8.2)
[2021-12-20] MEDS: VITAMIN D 1,000 INTERNATIONAL UNITS TABLET PO SCH (08:37)
[2021-12-20] MEDS: SODIUM BICARBONATE 325 MG TAB PO SCH (08:37)
[2021-12-20] MEDS: oxyCODONE 5MG TAB PO PRN (10:41)
[2021-12-20] MEDS: diphenhydrAMINE CREAM 30GM TOP PRN (17:37)
[2021-12-21] MEDS: oxyCODONE 5MG TAB PO PRN (04:38)
[2021-12-21] MEDS ORDERED: oxyCODONE 5MG TAB PO PRN (05:05)
[2021-12-21] MEDS: diphenhydrAMINE CREAM 30GM TOP PRN (05:14)
[2021-12-21] MEDS ORDERED: MORP1SOL PO (10:05)
[2021-12-21] MEDS ORDERED: HYOS125TA PO (10:05)
[2021-12-21] MEDS ORDERED: ATIV1TAB10 PO (10:05)
== END 2021-12-21 11:41 | disposition hospice, home (50) | DRG 607 ==
LOC: M ED 13:10 → M ED INP 12-18 02:18 → ENRESERV 12-18 03:48 → M MSPAV 12-18 04:28
PROVIDERS: ADMIT Internal Medicine; ATTEND Family Medicine
DX: I89.0 Lymphedema, not elsewhere classified (principal); N17.9 Acute kidney failure, unspecified; C78.7 Secondary malignant neoplasm of liver and intrahepatic bile duct; C18.9 Malignant neoplasm of colon, unspecified; R18.8 Other ascites; E87.2 Acidosis; E87.1 Hypo-osmolality and hyponatremia; D62 Acute posthemorrhagic anemia; R59.0 Localized enlarged lymph nodes; N18.32 Chronic kidney disease, stage 3b; I10 Essential (primary) hypertension; E78.5 Hyperlipidemia, unspecified; L20.89 Other atopic dermatitis; Z51.5 Encounter for palliative care; Z66 Do not resuscitate